=== PATIENT | female | born 1990 | race Caucasian/White ===

== ENCOUNTER 2024-09-15 06:26 | Day surgery (SDC) | payer OTHER, SELFPAY ==
[2024-09-15] VITALS (10 sets, daily range): BP systolic 90–97; BP diastolic 55–66; BMI 20.7
[2024-09-15] MEDS: NORMOSOL-R/PLASMALYTE-A 1000 IV (08:39)
[2024-09-15] MEDS: TYLENOL 1000 MG PO (08:40)
== END 2024-09-15 12:40 | disposition home or self-care (01) ==
LOC: SDS 06:26
PROVIDERS: ATTENDING PHYSICIAN Obstetrics & Gynecology
DX: N97.9 Female infertility, unspecified (principal); N84.0 Polyp of corpus uteri
CPT/HCPCS: 58558; 88305